=== PATIENT | female | born 1960 | race Caucasian/White ===

== ENCOUNTER 2024-08-20 13:27 | Emergency (ER) | payer MEDICARE, SELFPAY ==
[2024-08-20 13:29] VITALS: BP 138/71
--- NOTE | 2024-08-20 14:53 | ED.GENMED ---
History of Present Illness
General
Chief Complaint: Chest Pain
Time Seen by Provider: 08/20/24 14:25
History of Present Illness
History of Present Illness:
63-year-old female with history of coronary artery disease status post single stent to the LAD in 2021 presents to the emergency department for evaluation of left-sided chest pain rating to the shoulder and jaw for the past 10 days. Pain is
nonexertional or positional nature but is mildly pleuritic. No associated fevers or chills. Denies any coughing, shortness of breath, nausea, or vomiting. Has not taken any medications for symptom control.
Review of Systems
Review of Systems
Allergies reviewed?: Yes
All Other Systems: ROS reviewed and negative except as documented in HPI and ROS
Phy Exam
Physical Exam
Physical Exam:
GEN: Well appearing, NAD, WDWN
HEENT: Oral mucosa moist, no scleral icterus
Cardiac: Regular rate and rhythm, no murmurs
Lung: No respiratory distress, no tachypnea, lungs clear to auscultation bilaterally
MSK: No gross deformity or injuries
Skin: Good color, no pallor or jaundice, no rashes
Neuro: AO x3, moves all extremities freely
Psych: Calm, cooperative
Scores
Heart Score for Chest Pain Patients
STEMI patient?: No
History: Slightly or Non-Suspicious
ECG: Normal
Age: >45 - <65 years
Risk Factors: >/= 3 Risk Factors or History of CAD
Troponin: </= Normal Limit
Heart Score for Chest Pain Patients: 3
Heart Score Risk: 2.5% MACE over next 6 weeks
Course
Orders/Labs/Results
Orders:
Orders
08/20/24 13:28
EKG [Electrocardiogram (*1)] Urgent
Reason for Study: Chest Pain
08/20/24 13:29
EKG- Treatment ONCE
08/20/24 14:53
CR Chest - 2 Views Urgent
Comment:
Reason For Exam: chest pain
08/20/24 15:02
Complete Blood Count/With Diff Urgent
Comprehensive Metabolic Panel Urgent
D-Dimer Urgent
Troponin I Urgent
Abnormal Lab Results
08/20/24
15:02
Monocytes % 10.2 H %
(1.7-9.3)
Creatinine 0.5 L mg/dL
(0.6-1.0)
08/20/24 15:02
08/20/24 15:02
Vital Signs
Initial and Last Documented VS:
Initial Vital Signs
Temp Pulse Resp BP Pulse Ox
97.8 F 72 16 138/71 96
08/20/24 13:29 08/20/24 13:29 08/20/24 13:29 08/20/24 13:29 08/20/24 13:29
Last Documented Vital Signs
Temp Pulse Resp BP Pulse Ox
97.8 F 75 10 138/69 98
08/20/24 13:29 08/20/24 16:32 08/20/24 15:37 08/20/24 16:32 08/20/24 16:32
MDM/Problems Addressed
MDM/Problems Addressed:
Patient's workup is benign, troponin is negative and EKG is nonischemic. D-dimer negative rules out PE. Chest x-ray shows no acute infiltrate. Given that she is planning to undergo kidney stone lithotripsy through [facility] at some point
in the coming weeks will refer to cardiology for further anesthesia clearance
Comment
Comment:
EKG independently interpreted by me shows normal sinus rhythm at a rate of 64, flattened T waves in V2 and V3, being other concerning signs of ischemia
*Critical Care Note
Total Time (30-74mins, 75-104mins- exclusive of procedures): Not Applicable
ED Attending Note
-
Portions of this chart may have been created with voice recognition software.� Occasional wrong word or��sound alike� substitutions may have occurred due to the inherent limitations of voice recognition software.
Discharge Plan
Departure
Patient Disposition: Home (Routine Discharge)
Date of Disposition: 08/20/24
Time of Disposition: 16:12
Patient with high blood pressure during this ER visit?: No
Discharge Problem:
Atypical chest pain
Instructions: Chest Pain CBC Follow Up
Referrals:
UNKNOWN - PT DOES,NOT KNOW [Unknown Provider] -
Activity Restrictions/Additional Instructions:
Take 600mg ibuprofen every 6 hours until cardiology follow up
Interventions
Interventions:
*Risk Screen - Suicide Last Done: 08/20/24 15:00
*General Assessment Last Done: 08/20/24 16:32
*Neglect/Abuse Screening Last Done: 08/20/24 15:00
ED- Fall Risk Assessment Last Done: 08/20/24 16:32
*ED COVID-19 Vaccine History Last Done: 08/20/24 16:32
*Nursing Disposition Last Done: 08/20/24 16:32
ED- Cardiac Assessment Last Done: 08/20/24 15:00
Discharge Date and Time
Discharge Date/Time: 08/20/24 16:34
Print Language: SAMI
[2024-08-20 15:24] LABS: % Basophils 0.7 % (0-2); % Eosinophils 4.9 % (0-6); % Immature Granulocytes 0.4 % (0-0.5); % Lymphocytes 29.6 % (20.5-51.1); % Monocytes 10.2 % (1.7-9.3); % Neutrophils 54.2 % (42.2-75.2); Absolute Eosinophils 0.3 10^3/uL (0-0.7); Absolute Lymphocytes 1.7 10^3/uL (1.2-3.4); Absolute Monocytes 0.6 10^3/uL (0.1-0.6); Absolute Neutrophils 3.1 10^3/uL (1.4-6.5); Hematocrit 41.4 % (37.0-47.0); Hemoglobin 14.4 g/dL (12.0-16.0); Mean Corp Hgb Conc. 34.8 g/dL (33.0-37.0); Mean Corpuscular Hgb 29.9 pg (27.0-31.0); Mean Corpuscular Volume 85.9 fL (81.0-99.0); Mean Platelet Volume 9.8 fL (7.4-10.4); Nucleated Red Blood Cells % 0 %; Platelet Count 264 10^3/uL (130-400); Red Blood Cell Count 4.82 10^6/uL (4.20-5.40); Red Cell Dist. Width 12.3 % (11.5-14.5); White Blood Cell Count 5.7 10^3/uL (4.8-10.8)
[2024-08-20 15:32] LABS: ALT (SGPT) 21 U/L (0-35); AST (SGOT) 20 U/L (14-36); Albumin 4.6 g/dl (3.5-5.0); Alkaline Phosphatase 85 U/L (38-126); Blood Urea Nitrogen 12 mg/dl (7-17); Calcium 9.8 mg/dl (8.4-10.2); Carbon Dioxide 25 mmol/L (22-30); Chloride 104 mmol/L (98-107); Glucose 87 mg/dl (70-99); Sodium 139 mmol/L (135-145); Total Bilirubin 0.5 mg/dl (0.2-1.3); Total Protein 6.7 g/dl (6.3-8.2); eGFR > 60.00
[2024-08-20 15:42] LABS: Troponin I < 0.012 ng/ml
[2024-08-20 16:03] LABS: D-Dimer < 0.27 ug/mlFEU (0.00-0.50)
[2024-08-20 16:14] VITALS: BP 138/85
[2024-08-20 16:32] VITALS: BP 138/69
== END 2024-08-20 16:34 | disposition home or self-care (01) ==
LOC: EMR 13:27
PROVIDERS: Physician Assistant; EMERGENCY PHYSICIAN Emergency Medicine; FAMILY PHYSICIAN Family Medicine
DX: R07.89 Other chest pain (principal); M25.512 Pain in left shoulder; R68.84 Jaw pain; N20.0 Calculus of kidney; I25.10 Atherosclerotic heart disease of native coronary artery without angina pectoris; Z95.5 Presence of coronary angioplasty implant and graft; Z88.2 Allergy status to sulfonamides; Z88.8 Allergy status to other drugs, medicaments and biological substances; Z88.1 Allergy status to other antibiotic agents; Z91.041 Radiographic dye allergy status; Z91.040 Latex allergy status; Z88.5 Allergy status to narcotic agent; Z88.0 Allergy status to penicillin; Z91.013 Allergy to seafood
CPT/HCPCS: 99283; 71046; 80053; 84484; 85025; 85379; 93005

== ENCOUNTER → 2025-04-19 14:30 | Outpatient (REF) | payer MEDICARE, SELFPAY | LOC: DHSLP 14:30 | PROVIDERS: ATTENDING PHYSICIAN Internal Medicine | DX: G47.30 Sleep apnea, unspecified (principal); R06.83 Snoring | CPT/HCPCS: 95810 ==

== ENCOUNTER → 2025-08-19 14:36 | Outpatient (REF) | payer MEDICARE, SELFPAY | LOC: HWRAD 14:36 | PROVIDERS: ATTENDING PHYSICIAN Internal Medicine; FAMILY PHYSICIAN Family Medicine | DX: R05.3 Chronic cough (principal) | CPT/HCPCS: 71250 ==